=== PATIENT | female | born 1945 | race Caucasian/White ===

== ENCOUNTER 2021-05-18 13:06 | Emergency (ER) | payer OTHER ==
[~2021-05-18] VITALS: Ht 172.7 cm; Wt 104.5 kg
[2021-05-18] MEDS ORDERED: BUDE180A INH (15:13)
[2021-05-18 15:42] LABS: BASOPHILS % (AUTO) 0.2 % (0-1); EOSINOPHILS % (AUTO) 0.1 % (0-6); HEMATOCRIT 38.8 % (35.0-45.0); HEMOGLOBIN 13.1 g/dl (12.0-16.0); LYMPHOCYTES # (AUTO) 1.7 X10'3 (1.1-4.8); LYMPHOCYTES % (AUTO) 33.5 % (21-51); MEAN CORPUSCULAR HEMOGLOBIN 29.5 PG (27.0-31.0); MEAN CORPUSCULAR HGB CONC 33.7 g/dL (33.0-36.5); MEAN CORPUSCULAR VOLUME 87.5 FL (78-98); MEAN PLATELET VOLUME 8.1 FL (7.4-10.4); MONOCYTES # (AUTO) 0.5 X10'3 (0-0.9); MONOCYTES % (AUTO) 10.3 % (2-12); NEUTROPHILS # (AUTO) 2.8 X10'3 (1.8-7.7); NEUTROPHILS % (AUTO) 55.9 % (42-75); PLATELET COUNT 244 X10'3 (140-440); RED BLOOD COUNT 4.44 X10'6 (4.20-5.60); RED CELL DISTRIBUTION WIDTH 14.6 % (11.5-14.5)
[2021-05-18 15:58] LABS: ALANINE AMINOTRANSFERASE 31 U/L (12-78); ALBUMIN 3.1 G/DL (3.4-5.0); ALBUMIN/GLOBULIN RATIO 0.7 (1.1-1.5); ALKALINE PHOSPHATASE 65 IU/L (46-116); ANION GAP 13 (8-16); ASPARTATE AMINO TRANSFERASE 53 U/L (10-37); BILIRUBIN,TOTAL 0.3 MG/DL (0.1-1.0); BLOOD UREA NITROGEN 21 MG/DL (7-18); BUN/CREATININE RATIO 19.8 (6.6-38.0); CALCIUM 8.7 MG/DL (8.5-10.1); CHLORIDE 98 MMOL/L (99-107); CREATININE 1.06 MG/DL (0.40-0.90); GLUCOSE 122 MG/DL (70-104); POTASSIUM 3.4 MMOL/L (3.5-5.1); SODIUM 136 MMOL/L (135-145); TOTAL CARBON DIOXIDE 25.1 MMOL/L (24-32); TOTAL PROTEIN 7.7 G/DL (6.4-8.2); eGFR 51 ML/MIN
[2021-05-18 17:15] VITALS: BP 110/72
== END 2021-05-18 17:17 | disposition home or self-care (01) ==
LOC: ER 13:07
DX: U07.1 COVID-19 (principal); E86.0 Dehydration; R53.1 Weakness; R51.9 Headache, unspecified; R50.9 Fever, unspecified; I10 Essential (primary) hypertension; Z88.5 Allergy status to narcotic agent; Z79.899 Other long term (current) drug therapy
CPT/HCPCS: 36415; 80053; 85025; 87635; 99283; C9803

== ENCOUNTER 2024-02-11 20:36 | Inpatient (IN) | payer MEDICARE, OTHER ==
[~2024-02-11] VITALS: Ht 172.7 cm; Wt 93.0 kg
[~2024-02-11 20:36] MED LIST: BUDE180A INH
[2024-02-11] MEDS: ondansetron/PF 4mg/2ml inj IV ONE (21:15)
[2024-02-11] MEDS: normal saline 1000ML IV soln IVB ONE (21:15)
[2024-02-11 22:16] LABS: BASOPHILS % (AUTO) 0.2 % (0-1); EOSINOPHILS % (AUTO) 0 % (0-6); HEMATOCRIT 37.6 % (35.0-45.0); HEMOGLOBIN 11.9 g/dl (12.0-16.0); LYMPHOCYTES # (AUTO) 0.6 X10'3 (1.1-4.8); LYMPHOCYTES % (AUTO) 4.6 % (21-51); MEAN CORPUSCULAR HEMOGLOBIN 28.9 PG (27.0-31.0); MEAN CORPUSCULAR HGB CONC 31.7 g/dL (33.0-36.5); MEAN CORPUSCULAR VOLUME 91.4 FL (78-98); MEAN PLATELET VOLUME 7.4 FL (7.4-10.4); MONOCYTES # (AUTO) 0.9 X10'3 (0-0.9); MONOCYTES % (AUTO) 6.8 % (2-12); NEUTROPHILS % (AUTO) 88.4 % (42-75); PLATELET COUNT 227 X10'3 (140-440); RED BLOOD COUNT 4.12 X10'6 (4.20-5.60); RED CELL DISTRIBUTION WIDTH 15.9 % (11.5-14.5); WHITE BLOOD COUNT 13.6 X10'3 (4.5-11.0)
[2024-02-11 22:36] LABS: ALBUMIN 2.2 G/DL (3.4-5.0); ANION GAP 12 (8-16); BLOOD UREA NITROGEN 30 MG/DL (7-18); CHLORIDE 113 MMOL/L (99-107); GLUCOSE 106 MG/DL (70-104); SODIUM 146 MMOL/L (135-145); TOTAL CARBON DIOXIDE 20.9 MMOL/L (24-32); eCRCL 32 ML/MIN; eGFR 34 ML/MIN
[2024-02-11 22:37] LABS: POTASSIUM 2.8 MMOL/L (3.5-5.1)
[2024-02-12] VITALS (11 sets, daily range): BP systolic 87–133; BP diastolic 41–62; PULSE 96–109; RESP 13–24; O2SAT 92–97
[2024-02-12] MEDS: potassium Cl 40MEQ/1/2NS 520ml 520 ML IV SCH (00:17)
[2024-02-12] MEDS: normal saline 1000ML IV soln IVB ONE (00:44)
[2024-02-12] MEDS: piperacillin/tazo 3.375gm/50ml 50 ML IV ONE (00:56)
[2024-02-12] MEDS ORDERED: magnesium Cl slow-release 64mg tablet PO PRN (01:00)
[2024-02-12] MEDS ORDERED: potassium Cl 40MEQ/1/2NS 520ml 520 ML IV PRN (01:00)
[2024-02-12] MEDS ORDERED: magnesium sulf-water 2g/50mL 50 ML IV PRN (01:00)
[2024-02-12] MEDS ORDERED: potassium Cl 20 mEq SR tablet PO PRN ×2 (01:00)
[2024-02-12] MEDS ORDERED: acetaminophen 325mg tablet PO PRN (01:00)
[2024-02-12] MEDS ORDERED: morphine 2 MG/ML inj. syringe IV PRN ×2 (01:00→18:45)
[2024-02-12] MEDS ORDERED: magnesium sulf-water 4G/100mL 100 ML IV PRN (01:00)
[2024-02-12] MEDS: ringers solution, lactated 1000ml IV soln IV ONE (01:22)
[2024-02-12 02:04] LABS: BILIRUBIN,URINE MODERATE (Neg); CLARITY,URINE SLIGHTLY CLOUDY (Clear); COLOR,URINE BROWN (Yellow); GLUCOSE, URINE 100 mg/dl (Neg); KETONES,URINE TRACE mg/dl (Neg); LEUKOCYTE ESTERASE ,URINE NEGATIVE (Neg); OCCULT BLOOD,URINE NEGATIVE (Neg); PROTEIN,URINE 100 mg/dl (Neg)
[2024-02-12 02:14] LABS: NITRITES, URINE NEGATIVE (Neg); UA COLLECTION TYPE STRAIGHT CATH
[2024-02-12 02:17] LABS: AMORPHOUS URATES 2+; BACTERIA,URINE 2+ /HPF (Neg); MUCUS STRANDS MODERATE /LPF (Neg); SQUAMOUS EPITHELIAL CELL,UR FEW /LPF (FEW); TRANSITIONAL EPI CELLS,URINE FEW /HPF
[2024-02-12 02:18] LABS: FINE GRANULAR CAST 0-3 /LPF (NEGATIVE)
[2024-02-12 02:23] LABS: URINE AMPHETAMINE SCREEN NEGATIVE (Neg); URINE BARBITUATE SCREEN NEGATIVE (Neg); URINE BENZODIAZEPINES SCREEN NEGATIVE (Neg); URINE CANNABINOID SCREEN NEGATIVE (Neg); URINE COCAINE SCREEN NEGATIVE (Neg); URINE METHADONE SCREEN NEGATIVE (Neg); URINE OPIATE SCREEN POSITIVE (Neg); URINE PHENCYCLIDINE SCREEN NEGATIVE (Neg)
[2024-02-12 02:28] LABS: BASOPHILS % (AUTO) 0 % (0-1); EOSINOPHILS % (AUTO) 0 % (0-6); HEMATOCRIT 43.4 % (35.0-45.0); HEMOGLOBIN 13.9 g/dl (12.0-16.0); LYMPHOCYTES # (AUTO) 0.5 X10'3 (1.1-4.8); LYMPHOCYTES % (AUTO) 3.3 % (21-51); MEAN CORPUSCULAR HEMOGLOBIN 29.1 PG (27.0-31.0); MONOCYTES # (AUTO) 0.7 X10'3 (0-0.9); MONOCYTES % (AUTO) 4.6 % (2-12); NEUTROPHILS # (AUTO) 13.5 X10'3 (1.8-7.7); NEUTROPHILS % (AUTO) 92.1 % (42-75); PLATELET COUNT 274 X10'3 (140-440); RED BLOOD COUNT 4.77 X10'6 (4.20-5.60); RED CELL DISTRIBUTION WIDTH 15.9 % (11.5-14.5); WHITE BLOOD COUNT 14.7 X10'3 (4.5-11.0)
[2024-02-12 02:43] LABS: APTT 25 SECONDS (22-32); PROTHROMBIN TIME 11.1 SECONDS (9.0-12.0)
[2024-02-12 02:45] LABS: ALANINE AMINOTRANSFERASE 35 U/L (12-78); ALBUMIN/GLOBULIN RATIO 0.9 (1.1-1.5); ALKALINE PHOSPHATASE 75 IU/L (46-116); ANION GAP 13 (8-16); ASPARTATE AMINO TRANSFERASE 71 U/L (10-37); BILIRUBIN,TOTAL 0.6 MG/DL (0.1-1.0); BLOOD UREA NITROGEN 39 MG/DL (7-18); BUN/CREATININE RATIO 19.8 (10.0-20.0); CALCIUM 8.7 MG/DL (8.5-10.1); CHLORIDE 106 MMOL/L (99-107); CREATININE 1.97 MG/DL (0.40-0.90); GLUCOSE 150 MG/DL (70-104); MAGNESIUM 2.4 MG/DL (1.5-2.4); PHOSPHORUS 4.9 MG/DL (2.3-4.5); POTASSIUM 4.6 MMOL/L (3.5-5.1); SODIUM 142 MMOL/L (135-145); TOTAL CARBON DIOXIDE 23.3 MMOL/L (24-32); TOTAL PROTEIN 6.5 G/DL (6.4-8.2); eCRCL 25 ML/MIN; eGFR 25 ML/MIN
[2024-02-12] MEDS: dextrose 5%-water 1,000 ML IV SCH (02:48)
[2024-02-12 03:02] LABS: OCCULT BLOOD STOOL POSITIVE (Neg)
[2024-02-12] MEDS: morphine 2 MG/ML inj. syringe IV PRN (03:41)
[2024-02-12 04:05] LABS: PLATELET ESTIMATE NORMAL; TOTAL CELLS COUNTED 100
[2024-02-12] MEDS: morphine 2 MG/ML inj. syringe IV ONE (05:11)
[2024-02-12] MEDS ORDERED: labetalol 20mg/4ml (5mg/ml) syringe IV ONE (06:45)
[2024-02-12] MEDS: normal saline 1000ml 1,000 ML IV ONE ×4 (07:36→10:07)
[2024-02-12] MEDS: acetaminophen 1,000mg/100ml IV 100 ML IV SCH (07:37)
[2024-02-12] MEDS: ringers solution, lacted 1,000 ML IV SCH (07:37)
[2024-02-12] MEDS: gabapentin 300mg capsule PO SCH (08:00)
[2024-02-12] MEDS: K and/or MAG REPLACEMENT MC SCH (08:00)
[2024-02-12] MEDS: CefTRIAXone/D5W-Rocephin 1gm 50 ML IV SCH (08:27)
[2024-02-12] MEDS: metroNIDAZOLE-Flagyl 500mg/NS 100 ML IV SCH (08:40)
[2024-02-12] MEDS: heparin, porcine 5000 units/ml vial SQ SCH (08:40)
[2024-02-12] MEDS ORDERED: GABA-530 PO (09:30)
[2024-02-12] MEDS ORDERED: ATOR20TA66 PO (09:30)
[2024-02-12] MEDS ORDERED: HYDR-3972 PO (09:30)
[2024-02-12] MEDS ORDERED: PANT40TA54 PO (09:30)
[2024-02-12] MEDS: ondansetron/PF 4mg/2ml inj IV PRN (09:40)
[2024-02-12] MEDS: morphine 4 MG/ML inj SYRINge IV ONE (09:53)
[2024-02-12] MEDS ORDERED: NORepinephrine 32mg/250mL bag 250 ML IV SCH (11:50)
[2024-02-12] MEDS ORDERED: NORepinephrine 8mg/ 250ml NS 250 ML IV SCH (11:50)
[2024-02-12] MEDS: NORepinephrine 8mg/ 250ml NS 250 ML IV SCH (12:13)
[2024-02-12 13:19] LABS: C DIFF ANTIGEN NEGATIVE (NEGATIVE); C DIFF SPECIMEN=DIARRHEA? ACCEPTABLE; C DIFFICILE TOXINS A&B NEGATIVE (Neg)
[2024-02-12] MEDS ORDERED: ST.300CA PO (15:42)
[2024-02-12] MEDS ORDERED: ASPI-130 PO (15:42)
[2024-02-12] MEDS ORDERED: pantoprazole 40 MG vial IV SCH (17:55)
[2024-02-12] MEDS: PERFLUTREN PROTEIN-A MICROSPHR (Optison) 0.22 MG/ML 3ML VIAL IV ONE (20:23)
[2024-02-12] MEDS: pantoprazole 40MG/NS 100ML BAG 100 ML IV SCH (20:47)
[2024-02-13] VITALS (24 sets, daily range): BP systolic 99–149; BP diastolic 45–98; PULSE 96–116; RESP 13–20; TEMP 99.5; O2SAT 90–97
[2024-02-13] MEDS: morphine 2 MG/ML inj. syringe IV PRN (02:42)
[2024-02-13 02:57] LABS: BASOPHILS % (AUTO) 0.4 % (0-1); EOSINOPHILS # (AUTO) 0.1 X10'3 (0-0.9); EOSINOPHILS % (AUTO) 0.5 % (0-6); HEMATOCRIT 34.9 % (35.0-45.0); HEMOGLOBIN 11.4 g/dl (12.0-16.0); LYMPHOCYTES % (AUTO) 7.6 % (21-51); MEAN CORPUSCULAR HEMOGLOBIN 29.5 PG (27.0-31.0); MEAN CORPUSCULAR HGB CONC 32.7 g/dL (33.0-36.5); MONOCYTES # (AUTO) 0.6 X10'3 (0-0.9); MONOCYTES % (AUTO) 4.4 % (2-12); NEUTROPHILS # (AUTO) 11.2 X10'3 (1.8-7.7); NEUTROPHILS % (AUTO) 87.1 % (42-75); PLATELET COUNT 213 X10'3 (140-440); RED BLOOD COUNT 3.88 X10'6 (4.20-5.60); RED CELL DISTRIBUTION WIDTH 15.7 % (11.5-14.5); WHITE BLOOD COUNT 12.8 X10'3 (4.5-11.0)
[2024-02-13 03:04] LABS: APTT 34 SECONDS (22-32); INR 1.2 INR
[2024-02-13 03:15] LABS: ALANINE AMINOTRANSFERASE 29 U/L (12-78); ALBUMIN 2.2 G/DL (3.4-5.0); ALBUMIN/GLOBULIN RATIO 0.7 (1.1-1.5); ALKALINE PHOSPHATASE 50 IU/L (46-116); ANION GAP 10 (8-16); ASPARTATE AMINO TRANSFERASE 124 U/L (10-37); BILIRUBIN,TOTAL 0.3 MG/DL (0.1-1.0); BLOOD UREA NITROGEN 37 MG/DL (7-18); BUN/CREATININE RATIO 27.6 (10.0-20.0); CALCIUM 8.1 MG/DL (8.5-10.1); CHLORIDE 110 MMOL/L (99-107); CREATININE 1.34 MG/DL (0.40-0.90); GLUCOSE 111 MG/DL (70-104); PHOSPHORUS 4.4 MG/DL (2.3-4.5); POTASSIUM 4.3 MMOL/L (3.5-5.1); SODIUM 142 MMOL/L (135-145); TOTAL CARBON DIOXIDE 21.9 MMOL/L (24-32); TOTAL PROTEIN 5.4 G/DL (6.4-8.2); eCRCL 36 ML/MIN; eGFR 38 ML/MIN
[2024-02-13] MEDS: COMMUNICATION ORDER 1 EA MISC MC ONE (08:14)
[2024-02-13] MEDS: HYDROcodone/acetaminophen 10/325mg tab PO PRN (15:37)
[2024-02-14 06:00] VITALS: BP 160/86; PULSE 113; RESP 22; TEMP 99; O2SAT 92
[2024-02-14 07:05] LABS: APTT 30 SECONDS (22-32); PROTHROMBIN TIME 10.5 SECONDS (9.0-12.0)
[2024-02-14 07:10] LABS: HEMOGLOBIN 11.4 g/dl (12.0-16.0); LYMPHOCYTES # (AUTO) 0.8 X10'3 (1.1-4.8)
[2024-02-14 07:13] LABS: BASOPHILS % (AUTO) 0.2 % (0-1); EOSINOPHILS % (AUTO) 0.2 % (0-6); LYMPHOCYTES % (AUTO) 9.8 % (21-51); MEAN CORPUSCULAR HEMOGLOBIN 28.9 PG (27.0-31.0); MEAN CORPUSCULAR HGB CONC 32.5 g/dL (33.0-36.5); MEAN CORPUSCULAR VOLUME 89.1 FL (78-98); MEAN PLATELET VOLUME 8.3 FL (7.4-10.4); MONOCYTES # (AUTO) 0.3 X10'3 (0-0.9); MONOCYTES % (AUTO) 3.1 % (2-12); NEUTROPHILS % (AUTO) 86.7 % (42-75); PLATELET COUNT 206 X10'3 (140-440); RED BLOOD COUNT 3.93 X10'6 (4.20-5.60); WHITE BLOOD COUNT 8.1 X10'3 (4.5-11.0)
[2024-02-14 07:25] LABS: ALANINE AMINOTRANSFERASE 35 U/L (12-78); ALBUMIN/GLOBULIN RATIO 0.6 (1.1-1.5); ALKALINE PHOSPHATASE 53 IU/L (46-116); ANION GAP 11 (8-16); ASPARTATE AMINO TRANSFERASE 122 U/L (10-37); BILIRUBIN,TOTAL 0.4 MG/DL (0.1-1.0); BLOOD UREA NITROGEN 31 MG/DL (7-18); CHLORIDE 108 MMOL/L (99-107); CREATININE 0.94 MG/DL (0.40-0.90); GLUCOSE 100 MG/DL (70-104); MAGNESIUM 1.7 MG/DL (1.5-2.4); PHOSPHORUS 2.4 MG/DL (2.3-4.5); POTASSIUM 4.1 MMOL/L (3.5-5.1); SODIUM 140 MMOL/L (135-145); TOTAL CARBON DIOXIDE 20.8 MMOL/L (24-32); TOTAL PROTEIN 5.3 G/DL (6.4-8.2); eCRCL 51 ML/MIN; eGFR 58 ML/MIN
[2024-02-14 07:46] LABS: ANISOCYTOSIS 1+; PLATELET ESTIMATE NORMAL; TOTAL CELLS COUNTED 100
[2024-02-14 08:00] VITALS: RESP 16; O2SAT 94
[2024-02-14 10:00] VITALS: BP 148/81; PULSE 107; RESP 16; TEMP 98.2; O2SAT 94
[2024-02-14] MEDS: HYDROcodone/acetaminophen 10/325mg tab PO PRN (14:22)
[2024-02-14 18:00] VITALS: BP 147/85; PULSE 104; RESP 16; TEMP 97.6; O2SAT 95
[2024-02-14 20:00] VITALS: RESP 16; O2SAT 95
[2024-02-14 22:00] VITALS: BP 161/80; PULSE 106; RESP 16; TEMP 98.7; O2SAT 95
[2024-02-15] VITALS (11 sets, daily range): BP systolic 136–163; BP diastolic 76–89; PULSE 107–114; RESP 16–22; TEMP 97.3–100.8; O2SAT 91–96
[2024-02-15 05:42] LABS: EOSINOPHILS # (AUTO) 0.1 X10'3 (0-0.9); HEMOGLOBIN 11.2 g/dl (12.0-16.0); MONOCYTES # (AUTO) 0.5 X10'3 (0-0.9)
[2024-02-15 05:45] LABS: BASOPHILS % (AUTO) 0.3 % (0-1); HEMATOCRIT 34.4 % (35.0-45.0); LYMPHOCYTES # (AUTO) 0.8 X10'3 (1.1-4.8); LYMPHOCYTES % (AUTO) 10.8 % (21-51); MEAN CORPUSCULAR HEMOGLOBIN 29.4 PG (27.0-31.0); MEAN CORPUSCULAR HGB CONC 32.7 g/dL (33.0-36.5); MEAN PLATELET VOLUME 8.4 FL (7.4-10.4); MONOCYTES % (AUTO) 7.1 % (2-12); NEUTROPHILS % (AUTO) 80.8 % (42-75); PLATELET COUNT 209 X10'3 (140-440); RED BLOOD COUNT 3.82 X10'6 (4.20-5.60); RED CELL DISTRIBUTION WIDTH 16.1 % (11.5-14.5); WHITE BLOOD COUNT 7.4 X10'3 (4.5-11.0)
[2024-02-15 06:06] LABS: PROTHROMBIN TIME 10.5 SECONDS (9.0-12.0)
[2024-02-15 06:19] LABS: ALANINE AMINOTRANSFERASE 36 U/L (12-78); ALBUMIN 1.8 G/DL (3.4-5.0); ALBUMIN/GLOBULIN RATIO 0.5 (1.1-1.5); ALKALINE PHOSPHATASE 52 IU/L (46-116); ANION GAP 9 (8-16); ASPARTATE AMINO TRANSFERASE 100 U/L (10-37); BILIRUBIN,TOTAL 0.5 MG/DL (0.1-1.0); BLOOD UREA NITROGEN 25 MG/DL (7-18); BUN/CREATININE RATIO 34.7 (10.0-20.0); CALCIUM 8.1 MG/DL (8.5-10.1); CHLORIDE 108 MMOL/L (99-107); CREATININE 0.72 MG/DL (0.40-0.90); GLUCOSE 102 MG/DL (70-104); MAGNESIUM 1.8 MG/DL (1.5-2.4); PHOSPHORUS 2.5 MG/DL (2.3-4.5); POTASSIUM 3.6 MMOL/L (3.5-5.1); SODIUM 139 MMOL/L (135-145); TOTAL CARBON DIOXIDE 22.2 MMOL/L (24-32); TOTAL PROTEIN 5.1 G/DL (6.4-8.2); eCRCL 67 ML/MIN; eGFR 79 ML/MIN
[2024-02-15] MEDS: HYDROmorphone 1 mg/ml syringe IV ONE (13:46)
[2024-02-15 17:15] LABS: CREATININE, URINE 59.7 mg/dL (Not Estab.); MICROALBUMIN,U,RANDOM 23.4 ug/mL (Not Estab.)
[2024-02-15 17:53] LABS: ABG BASE EXCESS -2.7 mmol/L (-2.0-2.0); ABG HCO3 20.9 mmol/L (22.0-26.0); ABG OXYGEN SATURATION 92.7 % (94-97); ABG PO2 (T) 65.3 mmHg (75.0-100.0); ALLEN'S TEST POSITIVE; FCOHb 1.8 % (0.0-3.9); FHHb 7.1 % (0.0-5.0); FLOW 2 L/min; FMetHb 0.3 % (0.0-1.5); FO2Hb 90.8 % (94-97); MODE NASAL CANNULA; PATIENT TEMPERATURE 38.2; TOTAL HEMOGLOBIN 12.2 G/dl (12.0-16.0)
[2024-02-15] MEDS: methylPREDNISolone sod succ 125mg/2ml vial IV ONE (18:03)
[2024-02-15 18:18] LABS: HEMOGLOBIN 11.6 g/dl (12.0-16.0)
[2024-02-15 18:20] LABS: BASOPHILS % (AUTO) 0.2 % (0-1); EOSINOPHILS % (AUTO) 0.6 % (0-6); HEMATOCRIT 34.9 % (35.0-45.0); LYMPHOCYTES # (AUTO) 1.1 X10'3 (1.1-4.8); LYMPHOCYTES % (AUTO) 16.2 % (21-51); MEAN CORPUSCULAR HEMOGLOBIN 29.6 PG (27.0-31.0); MEAN CORPUSCULAR HGB CONC 33.2 g/dL (33.0-36.5); MEAN CORPUSCULAR VOLUME 89.2 FL (78-98); MEAN PLATELET VOLUME 8.3 FL (7.4-10.4); MONOCYTES # (AUTO) 0.8 X10'3 (0-0.9); MONOCYTES % (AUTO) 12.1 % (2-12); NEUTROPHILS # (AUTO) 4.8 X10'3 (1.8-7.7); NEUTROPHILS % (AUTO) 70.9 % (42-75); PLATELET COUNT 238 X10'3 (140-440); RED BLOOD COUNT 3.92 X10'6 (4.20-5.60); WHITE BLOOD COUNT 6.8 X10'3 (4.5-11.0)
[2024-02-15 18:27] LABS: ALANINE AMINOTRANSFERASE 37 U/L (12-78); ALBUMIN/GLOBULIN RATIO 0.6 (1.1-1.5); ALKALINE PHOSPHATASE 51 IU/L (46-116); ANION GAP 8 (8-16); ASPARTATE AMINO TRANSFERASE 92 U/L (10-37); BILIRUBIN,TOTAL 0.5 MG/DL (0.1-1.0); BLOOD UREA NITROGEN 21 MG/DL (7-18); BUN/CREATININE RATIO 26.3 (10.0-20.0); CALCIUM 8.2 MG/DL (8.5-10.1); CHLORIDE 105 MMOL/L (99-107); GLUCOSE 106 MG/DL (70-104); POTASSIUM 3.6 MMOL/L (3.5-5.1); SODIUM 136 MMOL/L (135-145); TOTAL CARBON DIOXIDE 22.6 MMOL/L (24-32); TOTAL PROTEIN 5.5 G/DL (6.4-8.2); eCRCL 60 ML/MIN; eGFR 70 ML/MIN
[2024-02-15] MEDS ORDERED: vancomycin 1,750 MG in NS 350ml IV soln IV ONE (19:15)
[2024-02-15] MEDS: ipratropium/albuterol 3ml nebule NEB SCH (19:23)
[2024-02-15] MEDS: HYDROmorphone 1 mg/ml syringe IV PRN (20:46)
[2024-02-15] MEDS: methylPREDNISolone sod succ/PF 40mg inj. IV SCH (20:52)
[2024-02-15] MEDS: VANCOMYCIN 750MG IV in NS 250 ML IV ONE (21:12)
[2024-02-15 21:18] LABS: BILIRUBIN,URINE SMALL (Neg); CLARITY,URINE CLEAR (Clear); GLUCOSE, URINE NEGATIVE (Neg); KETONES,URINE 40 mg/dl (Neg); LEUKOCYTE ESTERASE ,URINE NEGATIVE (Neg); NITRITES, URINE NEGATIVE (Neg); OCCULT BLOOD,URINE NEGATIVE (Neg); PROTEIN,URINE 30 mg/dl (Neg); UROBILINOGEN,URINE 0.2 E.U/dL (0.2-1.0)
[2024-02-15] MEDS: piperacillin/tazo 3.375gm/50ml 50 ML IV SCH (21:18)
[2024-02-15 21:22] LABS: UA COLLECTION TYPE FOLEY CATH
[2024-02-15 21:23] LABS: COLOR,URINE DARK YELLOW (Yellow)
[2024-02-15 21:26] LABS: BACTERIA,URINE FEW /HPF (Neg); SQUAMOUS EPITHELIAL CELL,UR FEW /LPF (FEW); WBC,URINE 0-4 /HPF (0-4)
[2024-02-15 21:27] LABS: FINE GRANULAR CAST 0-3 /LPF (NEGATIVE)
[2024-02-15] MEDS: vancomycin/NS 1 GM ADD-VANTAGE 250 ML IV ONE (23:42)
[2024-02-16] VITALS (16 sets, daily range): BP systolic 129–183; BP diastolic 66–102; PULSE 104–118; RESP 18–22; TEMP 96.5–98; O2SAT 91–97
[2024-02-16] MEDS: piperacillin/tazo 3.375gm/50ml 50 ML IV SCH (05:00)
[2024-02-16 06:00] LABS: BASOPHILS % (AUTO) 0.2 % (0-1); EOSINOPHILS % (AUTO) 0 % (0-6); HEMATOCRIT 33.8 % (35.0-45.0); HEMOGLOBIN 11.2 g/dl (12.0-16.0); LYMPHOCYTES # (AUTO) 0.6 X10'3 (1.1-4.8); LYMPHOCYTES % (AUTO) 11.3 % (21-51); MEAN CORPUSCULAR HEMOGLOBIN 29.8 PG (27.0-31.0); MEAN CORPUSCULAR HGB CONC 33.2 g/dL (33.0-36.5); MEAN CORPUSCULAR VOLUME 89.8 FL (78-98); MEAN PLATELET VOLUME 8.4 FL (7.4-10.4); MONOCYTES # (AUTO) 0.3 X10'3 (0-0.9); MONOCYTES % (AUTO) 5.1 % (2-12); NEUTROPHILS # (AUTO) 4.2 X10'3 (1.8-7.7); NEUTROPHILS % (AUTO) 83.4 % (42-75); PLATELET COUNT 237 X10'3 (140-440); RED BLOOD COUNT 3.77 X10'6 (4.20-5.60)
[2024-02-16 06:02] LABS: PROTHROMBIN TIME 10.9 SECONDS (9.0-12.0)
[2024-02-16 06:19] LABS: ALANINE AMINOTRANSFERASE 32 U/L (12-78); ALBUMIN/GLOBULIN RATIO 0.5 (1.1-1.5); ALKALINE PHOSPHATASE 49 IU/L (46-116); ANION GAP 15 (8-16); ASPARTATE AMINO TRANSFERASE 84 U/L (10-37); BILIRUBIN,TOTAL 0.5 MG/DL (0.1-1.0); BLOOD UREA NITROGEN 20 MG/DL (7-18); BUN/CREATININE RATIO 23.8 (10.0-20.0); CALCIUM 8.4 MG/DL (8.5-10.1); CHLORIDE 104 MMOL/L (99-107); CREATININE 0.84 MG/DL (0.40-0.90); GLUCOSE 165 MG/DL (70-104); MAGNESIUM 1.8 MG/DL (1.5-2.4); PHOSPHORUS 3.2 MG/DL (2.3-4.5); POTASSIUM 3.4 MMOL/L (3.5-5.1); SODIUM 138 MMOL/L (135-145); TOTAL CARBON DIOXIDE 19.5 MMOL/L (24-32); TOTAL PROTEIN 5.7 G/DL (6.4-8.2); eCRCL 57 ML/MIN; eGFR 66 ML/MIN
[2024-02-16] MEDS ORDERED: HYDROmorphone inj. 0.5 MG/0.5 ML DISP.SYRIN IV ONE (07:40)
[2024-02-16] MEDS: HYDROmorphone inj. 0.5 MG/0.5 ML DISP.SYRIN IV ONE (07:53)
[2024-02-16] MEDS: vancomycin/NS 1 GM ADD-VANTAGE 250 ML IV SCH (08:09)
[2024-02-16 09:58] LABS: D-DIMER 12.25 MG/L FEU (0-0.50)
[2024-02-16] MEDS: potassium Cl 20 mEq SR tablet PO STA (11:03)
[2024-02-16] MEDS: furosemide 20 MG/2 ML vial IV ONE (12:40)
[2024-02-16] MEDS ORDERED: iohexol 350MG/ML 100ml bottle IV ONE (14:30)
[2024-02-16] MEDS: heparin, porcine 5000 units/ml vial SQ SCH (15:22)
[2024-02-16] MEDS: normal saline 500ml IV soln 500 ML IV ONE (15:23)
[2024-02-16] MEDS: HYDROcodone/acetaminophen 10/325mg tab PO PRN (16:50)
[2024-02-16] MEDS ORDERED: potassium Cl 20 mEq SR tablet PO PRN ×2 (17:30)
[2024-02-16] MEDS ORDERED: potassium Cl 40MEQ/1/2NS 520ml 520 ML IV PRN (17:30)
[2024-02-16] MEDS ORDERED: BENA20TA82 PO (20:36)
[2024-02-16] MEDS: simethicone 80mg chew tab PO PRN (21:21)
[2024-02-16] MEDS: HYDROmorphone 1 mg/ml syringe IV ONE (23:13)
[2024-02-17] VITALS (12 sets, daily range): BP systolic 155–177; BP diastolic 87–107; PULSE 97–120; RESP 16–22; TEMP 96.9–97.9; O2SAT 91–98
[2024-02-17 07:39] LABS: BASOPHILS % (AUTO) 0.1 % (0-1); EOSINOPHILS % (AUTO) 0 % (0-6); HEMATOCRIT 33.5 % (35.0-45.0); LYMPHOCYTES # (AUTO) 0.7 X10'3 (1.1-4.8); LYMPHOCYTES % (AUTO) 7.5 % (21-51); MEAN CORPUSCULAR HEMOGLOBIN 29.2 PG (27.0-31.0); MEAN CORPUSCULAR HGB CONC 32.9 g/dL (33.0-36.5); MEAN CORPUSCULAR VOLUME 88.5 FL (78-98); MEAN PLATELET VOLUME 7.8 FL (7.4-10.4); MONOCYTES # (AUTO) 1.2 X10'3 (0-0.9); MONOCYTES % (AUTO) 12.7 % (2-12); NEUTROPHILS # (AUTO) 7.7 X10'3 (1.8-7.7); NEUTROPHILS % (AUTO) 79.7 % (42-75); PLATELET COUNT 324 X10'3 (140-440); RED BLOOD COUNT 3.79 X10'6 (4.20-5.60); RED CELL DISTRIBUTION WIDTH 16.3 % (11.5-14.5); WHITE BLOOD COUNT 9.7 X10'3 (4.5-11.0)
[2024-02-17] MEDS ORDERED: ipratropium/albuterol 3ml nebule NEB PRN (07:45)
[2024-02-17] MEDS: pantoprazole 40mg Tablet.DR PO SCH (08:10)
[2024-02-17 08:26] LABS: ALANINE AMINOTRANSFERASE 33 U/L (12-78); ALBUMIN 2.2 G/DL (3.4-5.0); ALBUMIN/GLOBULIN RATIO 0.6 (1.1-1.5); ALKALINE PHOSPHATASE 54 IU/L (46-116); ANION GAP 10 (8-16); ASPARTATE AMINO TRANSFERASE 80 U/L (10-37); BILIRUBIN,TOTAL 0.4 MG/DL (0.1-1.0); BLOOD UREA NITROGEN 29 MG/DL (7-18); BUN/CREATININE RATIO 33.3 (10.0-20.0); CALCIUM 8.5 MG/DL (8.5-10.1); CHLORIDE 106 MMOL/L (99-107); CREATININE 0.87 MG/DL (0.40-0.90); GLUCOSE 164 MG/DL (70-104); MAGNESIUM 1.9 MG/DL (1.5-2.4); PHOSPHORUS 2.9 MG/DL (2.3-4.5); POTASSIUM 4.1 MMOL/L (3.5-5.1); SODIUM 139 MMOL/L (135-145); TOTAL CARBON DIOXIDE 23.4 MMOL/L (24-32); VANCOMYCIN,TROUGH 8.7 ug/mL (10.0-20.0); eCRCL 55 ML/MIN; eGFR 63 ML/MIN
[2024-02-17 08:29] LABS: NUCLEATED RED BLOOD CELLS 0 /100WBC (0-0); TOTAL CELLS COUNTED 100
[2024-02-17 08:30] LABS: ANISOCYTOSIS 1+; PLATELET ESTIMATE NORMAL
[2024-02-17] MEDS: metoprolol tartrate 12.5mg (1/2 tablet) PO SCH (10:36)
[2024-02-17] MEDS: lactose-reduced food (Ensure High Protein) 237ml bottle PO SCH (12:30)
[2024-02-17] MEDS ORDERED: ACETAMINOPHEN PO PRN (16:55)
[2024-02-17] MEDS ORDERED: ST JOHN S WORT PO PRN (16:55)
[2024-02-17] MEDS ORDERED: CAFFEINE PO PRN (16:55)
[2024-02-17] MEDS ORDERED: ASPIRIN PO PRN (16:55)
[2024-02-17] MEDS: metoprolol tartrate 25mg tablet PO SCH (19:29)
[2024-02-18 06:00] LABS: BASOPHILS % (AUTO) 0.2 % (0-1); EOSINOPHILS % (AUTO) 0 % (0-6); HEMATOCRIT 35.1 % (35.0-45.0); HEMOGLOBIN 11.6 g/dl (12.0-16.0); LYMPHOCYTES # (AUTO) 0.8 X10'3 (1.1-4.8); LYMPHOCYTES % (AUTO) 10.9 % (21-51); MEAN CORPUSCULAR HEMOGLOBIN 29.6 PG (27.0-31.0); MEAN CORPUSCULAR VOLUME 89.7 FL (78-98); MEAN PLATELET VOLUME 7.7 FL (7.4-10.4); MONOCYTES # (AUTO) 1.1 X10'3 (0-0.9); MONOCYTES % (AUTO) 14.3 % (2-12); NEUTROPHILS # (AUTO) 5.7 X10'3 (1.8-7.7); NEUTROPHILS % (AUTO) 74.6 % (42-75); PLATELET COUNT 390 X10'3 (140-440); RED BLOOD COUNT 3.91 X10'6 (4.20-5.60); RED CELL DISTRIBUTION WIDTH 15.9 % (11.5-14.5); WHITE BLOOD COUNT 7.6 X10'3 (4.5-11.0)
[2024-02-18 06:17] LABS: ALANINE AMINOTRANSFERASE 33 U/L (12-78); ALBUMIN 2.4 G/DL (3.4-5.0); ALBUMIN/GLOBULIN RATIO 0.6 (1.1-1.5); ALKALINE PHOSPHATASE 54 IU/L (46-116); ANION GAP 7 (8-16); ASPARTATE AMINO TRANSFERASE 74 U/L (10-37); BILIRUBIN,TOTAL 0.5 MG/DL (0.1-1.0); BLOOD UREA NITROGEN 33 MG/DL (7-18); BUN/CREATININE RATIO 35.9 (10.0-20.0); CALCIUM 8.7 MG/DL (8.5-10.1); CHLORIDE 106 MMOL/L (99-107); CREATININE 0.92 MG/DL (0.40-0.90); GLUCOSE 164 MG/DL (70-104); MAGNESIUM 2.1 MG/DL (1.5-2.4); PHOSPHORUS 2.9 MG/DL (2.3-4.5); POTASSIUM 3.9 MMOL/L (3.5-5.1); SODIUM 138 MMOL/L (135-145); TOTAL PROTEIN 6.1 G/DL (6.4-8.2); eCRCL 52 ML/MIN; eGFR 59 ML/MIN
[2024-02-18 07:16] VITALS: BP 168/100; PULSE 95; RESP 20; TEMP 96.8; O2SAT 95
[2024-02-18] MEDS: normal saline 500ml IV soln 500 ML IV ONE (07:20)
[2024-02-18 07:25] VITALS: RESP 16
[2024-02-18] MEDS: lisinopril 20mg tablet PO SCH (07:30)
[2024-02-18] MEDS: pantoprazole 40mg Tablet.DR PO SCH (07:31)
[2024-02-18 10:00] VITALS: BP 180/100; PULSE 104; RESP 18; TEMP 97; O2SAT 93
[2024-02-18 10:17] VITALS: PULSE 100; RESP 18; O2SAT 91
[2024-02-18] MEDS: lisinopril 20mg tablet PO ONE (10:39)
[2024-02-18 10:40] VITALS: BP_SYST 180; PULSE 104
[2024-02-18] MEDS: amLODIPine 5mg tablet PO ONE (10:40)
[2024-02-18 10:46] VITALS: RESP 16
[2024-02-18] MEDS ORDERED: CARV6.253 PO (14:21)
[2024-02-18] MEDS ORDERED: ALBU8HFA PO (14:21)
[2024-02-18] MEDS ORDERED: LACT1CAP65 PO (14:21)
[2024-02-18] MEDS ORDERED: PRED10TA23 PO (14:21)
[2024-02-18] MEDS ORDERED: CEFD300C17 PO (14:21)
[2024-02-18] MEDS ORDERED: carvedilol 6.25mg tablet PO SCH (20:00)
== END 2024-02-18 16:15 | disposition home or self-care (01) | DRG 871 ==
LOC: ER 20:37 → ED HOLD 02-12 01:02 → EDBEDREQ 02-12 10:24 → ICU 2S 02-12 13:50 → SUR 3N 02-13 21:25
PROVIDERS: ADMIT Surgery; ATTEND Family Medicine
PROC: B32T1ZZ Computerized Tomography (CT Scan) of Left Pulmonary Artery using Low Osmolar Contrast (ICD-10-PCS; principal; 2024-02-16)
PROC: B3201ZZ Computerized Tomography (CT Scan) of Thoracic Aorta using Low Osmolar Contrast (ICD-10-PCS; 2024-02-16)
PROC: B32S1ZZ Computerized Tomography (CT Scan) of Right Pulmonary Artery using Low Osmolar Contrast (ICD-10-PCS; 2024-02-16)
DX: A41.9 Sepsis, unspecified organism (principal); J96.01 Acute respiratory failure with hypoxia; N17.0 Acute kidney failure with tubular necrosis; R65.21 Severe sepsis with septic shock; I50.32 Chronic diastolic (congestive) heart failure; N39.0 Urinary tract infection, site not specified; Z20.822 Contact with and (suspected) exposure to COVID-19; K52.9 Noninfective gastroenteritis and colitis, unspecified; G89.4 Chronic pain syndrome; E87.6 Hypokalemia; I11.0 Hypertensive heart disease with heart failure; M79.7 Fibromyalgia; Z88.5 Allergy status to narcotic agent; Z79.899 Other long term (current) drug therapy
CPT/HCPCS: 36415; 36600; 71045; 71275; 74018; 74176; 80048; 80053; 80202; 80305; 81001; 82043; 82272; 82570; 82803; 82948; 83605; 83735; 83880; 84100; 84145; 84484; 85007; 85018; 85025; 85379; 85610; 85730; 87040; 87045; 87046; 87081; 87324; 87449; 87502; 87503; 87811; 92508; 92616; 93005; 93306; 94640; 94664; 94668; 94760; 96365; 96375; 97110; 97116; 97162; 97530; 97535; 99285; A4314; A4615; A4620; A6213; A6258; A6449; C1751; C1758; G0378; J0131; J0696; J1170; J1644; J1940; J2270; J2405; J2470; J2543; J2919; J3370; J3480; J3490; J7030; J7040; J7050; J7070; J7120; Q9967